=== PATIENT | male | born 1940 | race American Indian/Alaskan Native ===

== ENCOUNTER 2016-11-19 18:24 | Emergency (ER) | payer OTHER, MEDICARE ==
[2016-11-19] MEDS ORDERED: TYLENOL PO ONE (21:36)
--- NOTE | 2016-11-19 22:01 | Emergency Department Report ---
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 B2Re0e4AjxLbLxDcY63/MARJAN/ANagDRyfU/xkAb5Q0doBFKqnXx/U8en5/Fg23o8UmgC/ TQ8FPMfunpHxodTvh1/+C1oEVQqYWGRbsVUApA0Bj68/Ye/b2QnIIw/1r/7xqBi2+ Dff1n9mMk3m8V8yQc1NEz/Y8uR3B4N7e7UZmhe/WSgCs/32/bT4h3eblzew4ekK4my+ziR/9R+5zj0P/ wBbsdh/vt/vN/N7v4OsObYBorpJ/glxc9PkC+Pj9x+WvSzGrN2ztOnx/ Ueb8yAZDT7xwy1G7auX01N6tByCGIKIf8F/moahZ0l/L/b4bEK5h/uYoJicW/8AaX/ CqLpo8xkK1vBtxpx8bhGrS73Cjb/Zk+Srgg8ErI/59vjC2gasn82aI6/Za+ KsjRzt2Gr2QodN0x4ea5L6DqIMt9AtMW6PrrP889xa6Jyrx12/OHTC4OnwR1zZrPkWd79+xnJRAg5XL+ 9cDfjt9J/r34c64c8xL1N/aD/T7g4RdNwqxo1q1cw0N+YBky8oqU8HPVkorHFCIUSGr+ DXvzMhkw8ZkbMY9t1uWdz14K5PyH/wedvFNkLz0k+m78liYiKnxRs7IzXPvtyzH+dn/ dx1FEWPmC2U6ShqgQ5+Inwl+W1zY4BIo/eg1vfAn+TfKLp2R19v8VqqPjt7AsQfoLKUH9+oRlsOG2o9+ 4Y9gbdw365ziSojs8U/ta8TdTbpZA7LhuP3weaw1E2R1PZghwGFePsph+JOXpe6P6BqchW+m4uNP+ CIytBnd64n9Y/q24ocqeylk2l6QBqHnUcAx+5UaOWwUKtHvgIt1x5M2BQ4iRKL40A4TsU+ V8ewujgjy2ltL8fOrtZ8dWH/RX8E4zl6qaSC4P9VBCEO/ Nit80UVf1zpngKB9d1RwyP8tKK2Uw5MZNB1ojJ4L7x5s6v6SKpMab/y+ kYkxtvpTMpcRxoRgAcNByu2ubP+pRfWMa2qmLnlFlRa8BbiFDvwQGwv6/Drj/69Y+khNEZt60/M33+ 8so45719T9JxcDCcHpFvDY1+F9g8z/fZq7x3bHzC/ aG1E7gvN4Kzi5TqAAH74ukhPTHPWcuKOebm6yQ7PW+B9D/5Wtgv7ks/0vd0wh9/sfB56/Y6+X/H/ NI1v2ObH0pm070N1C+G6eSrZqjr37NMZSuF6Gfj5ASAQisqBpQw4cWY+HNK0+50jRLfT/wDTr+1/ 8cgmEfpiOI1J6E6XmB+prgE7N56wm8qogfefwh+UxQiEie8pxd08DG/gbxv0L68OSUkG8jdYbmam5t/ 2u3gg+56ss1Le48b75/W2DdrH5/mQH3ehD8s7Qm8cby6eeYseT0sYmR953F+G/IdfM5X47zdw0WaVYAZ +9Ao8B8kxqF3inOl3ptYC+vq6cy4Mv9s393/2aup3JWUc4fY0c8F/JAhbka4v881zAjKp5EcyVq73Q8V /8NzeMPC+usqbwcytDw8CtA7U6/GqW4z6b2/tW+u/3c3DtTR1goN5/ iAn6v3gg1V7M2qlHzwqLczgwPi4Sd5doL5v1e8E41tZ8cKKQ32O8GtCQ2KY/jODJ6DiXloWlj2ibQy/ lra63QoR6a+xm+ba3aohdK/FSV85/OooK9YmDco+QwjwL8F9oSKkp9YdpjQuH8QUcES6t/ IeC9D8ThANMm3EndU/BsDk0ds+UfnT3M1V2Uwuzo7t9g2WxceoB+ZQluUsjW4l+PW6dqcmSwzC/h9o7/ 5TtZo00RMsbUZfJ+25eo3F9v8V/hHtS0+4tP3/MEvRn6lt3jd3LmMEJp1TvMyuAn+ QIJpnNievR00omQuBDlCmnDM/f2f27T/9H1j/AK+aE0772AnIdF9oMmAuZg3j+52I7ufp/dhtvJj33NK +vbjULpVWaRPJTodlrY/6jHT/AI+kJ1zm2CBV269VdX6b/iSqL6e1wrlsGN0gyx8bTl13eaU1/wD5Zb+ P/zYF6y4W4tK49zlwKG5G9LELIy81Xzchk0KnmhcVg/uvrC9Y3v/ gfW9iYuiBOXPvX1kB0vsO42AUov06itJb/JoDy4ZeX2/QuTpwED8e/kmRE+5FfZ8+b/t16/ sneeJ979GGMrjJwCH/FSrgssNdjGOqa4x5buQn0qLLtbcrA+p8R/SuHYQi1T2iBi+/kzpLqxJ9ilL/ AAE+2V8z/FP4jx/Dz4W2/wAUvEHwK+QnvFe9c/xF9IST3KE4mB+COjSAxP7MWc4IrIt/+ Ay0F5fzm4ci9M+k2m0Dzop8KZ5ygoC7AmMnqwfgodFnId8C3yt4V6RQ/FGv2r1vQOPWviVa/ oaGWv2Tavwe/Zrfz7X/AImnh68+uLP/XMo38koU5IikM970X+NLi3+U512r8B+PPEl/8SdH/wCFe+P/ TMj97wjzcgdydQ9o01gZS/iD/eHs4S8P3UwxQ0k9t/4R7/TLO+Gh3/ 4GbX6s0AWbr0VqbxwjMr0GxvB6H6Erjl/fj04f0QSk/ jHLDG8FuHPVQTaoR2XxmMlL3P8Ie2vnxeB28iB5Q+1C0+x2d4B/x+X2LOz+ 6hQStVgNwqc7Pwo34pK0s6XYEHRPMoGcM+//ARDh92XlJ7bbblNEz/0FNLyP+o3kqH2T+WixU8E5z1y+ EfGfhHS/h/8AC/4T+Nfbmb8G5ju/488HW/klvw4SO6Wf4ix5/gw3S10sV77k1Pq/APP1j/OVJ2mr4DO+ d8atQsa28A221qjkUcMSmzIFiKOqdm1YwdAkI4navtcYLwfKzkZmxX7HWUdyi/ tve3l0UaUJ7a1jYGRmgfJOtUC2/wDb/If1/Ngms8pxtXvbcO0/l/ Q5MhF0vvvRcuSvxu3zjq3BaQr6Uk1DvIRdphaSz54Amrzh7/ 8Q6K0H3oEt3OKfo2U3SooV0Xe8ynmc8D2+3t/+FS+GnXj75i+Lut3V/OL2MdDgqJoe0La9P1Utsj/ lKvy8t7/9ekuD019/501SgK9l4L32t/5ae8brieS9tqWC/Enw8+X0nuCrbeA+k/BD40+ NnuXuYdPuLbWfA/hCe+9FriDxgylB98/CDU6SxsAv4g0yxk4kb+sWNtrlh/h6kEwDnle8H6O+J/ za9fdNrnwS7HWg6a8Enjhx9U02vBDaV93T70k/AM/U+ufZfpPdf8/dfJ/6Azafmbs7+ Nw94mrhydhY6H7m+UXEK6IYbxkHVwupN/lsPhy0D3ftr6J/PBR8SjOI0/ol5Z3g/wCP/n/ T6IM6GiOXEERzezoZntvoD+Dv+CklhZat+lK0w2Bpcl/vhaU7Rk9IhGabU5/yHuR1fryI+ 6p0XrTttTPuAkd/4+tL2nXwIo9HD3t59rdU20p6f0B+V6N2oGgJ6wtdN/7b+GrHwTGLJqttj1rCkqH/ AKuaL+wIIPsf/n9dNyB8q+i/+MiPhDK5HAwnt1sV6+F/Q7lD6eOWo1j8awM0pe2K+L7/ LIRAm1DrIHW2aHw1ng7gr8xSp+UiaFH3ah/C+0f2sz5kK6C08/39WmJ0yYg3S+f+Pi1+wz/Yro/897nj /Q1DKvQrlT+VhxwD6jb8t+E/ta85k64L+B/eG2RnHRP3hYppBRi3yWCNeBjYrTR+ 3D2qd5R6f9EihZq5K9cG/yGS9T0dH7YFgQrqX5FtEsuP6RFuR84y9u6Xa/d18yE2IYVtg5K/4/ LzmfEejNoHxs+O8lj85ip2u0D/KToaQnNhgEkkoh2mqz3ULn7Lc41b/mRtK/3n4yKed/SlqdGk1dX/ MyMzK/8AGPM3+fZ29n6JJxJ/UO64h1tvDro/cX78szBtkVbmFyIq0x/V0ayTt5LJWvH68C/6+3179+ eMgElKCyncrsrd/wD6/Ho3zvMDJRPLqIXPAtJ/AH/8Py+mKbRRQAoLKdyuyt3/APr85/l+ zKuGOyPzJwWb3E6B/wBfP/42okpCfJtTtpaVfsr71/4/fln23aonh1EFyNkP/v8A+ N4nCSJmeWEyvog3wwK1mrhcTc/Q8XUFzn8Pe/4F/zKi8EZ99ARSy441/d/88/ Y11z0gyztTg52nLBI63jy/ACzQedxjP/Lz+4/9qh03XvRvHymbAUt//PRPPl/1P+j/ SZOsb66zuXITYnM9Z55/OAnmo405aFt8O/cXDMqsqwy/u3eCON/9Obbb4D5a5G/viX9TaS4Vvq6EyR/ TEi0mtr+IPD82h/C34N/xYgDx8q7deabb1sh/Joseph+L/oq8w0Y1L/RB4KkV3e+29H0/ rWVrel1cdKmQ6jkab/6UD0f3W2vnjc/zPp2mUwcIfCuweDSr/OVEcI7g/Our+ SCg3Cn5DZ4PBvQUu89s2t0q4e6Ngt8Ch6I1dzgk/mUF7e8W/OMtq0KCf9fPMS/ mSKJpn9R0HRozeovhaEkV+UZgQ8wMQt6kPR672qnedoEaS7p6Wnk/wBM+z3+g+VBJ1iRELhkE/ CIWPvV1cfY8g405k2wi/oIr+no4w0lD+ kJ0TdJk7Rqs9mzWzMooH5hF6csD8s4aKfSdPKJ6oqAeyy1QgJUfvGht/bg1uPpLEr/AB51/ VeESDOHEKokQ8c9I4RblG1pOmqEu4o27v/Of8vQpe6j5iRt/tZPcpOGmG8O9j7W1bl+aY3sZxG/B/ kQ2Upcnz6+7e3XM96guZ3X3EkOge+WtHqsWvg3uUm5Phab8wUMlMS2hWA2IpKrH+ 2OT46m4GClyd2Zxk0MiOs4o6rauMYIn8I/24/evJfh9T4gv+HPwq+BXeOg1Bn3yfa+ HG111LrhcFhFl6x8O4/bCi7ony0dPaLowS2u4dc/BYblm2YoTsB4f6wGjwsvUC3Mi1jyfQJ/Dehz+ HPgUci2ojXq5i42Lfc3X/6R1DX0g/4/lyOympRZC0OfOOAtv2K1R/r+NekaOvlCFl/ds3yP/hMiz3MD/ qX9V6SoANcoauZvdX8Xdujf9fn+e3tngH/Eo2eFfdv1PjLuQlBi72JwLd/g9yG7566je9Mh09WoN1tk+ a2r33n0A/PHz7f/AJdz/nmqa+A9Jc+Y17rUa+6qFCH2yy5JY40JEkl89+lz3iH8UoJbud/PH/ 026V0vEGUt1bBQH6zgG5Q8GLr0cJnFK6ysA2mp5NikjIOCB6rTyMS0MkMn2X/ iut5K8A48m20478xjjTBto4YQ2/52qzb5Z/PXv1+mDXTyIsg+ZVZef/r47Y/s2hU6ILb2rpbrdUP4pn/ r+PVJ8p1QKZhYEoh/hj/XQ6y5tTjAz8KWc2L4p02vokb/AD/hTbuTEyr/AAx/e2K3rVrc28q317X+ 0WjZ543s/CzHP8Ul/dT7UcKIW41F1udsXRgxvQHBR88Vj/nFUwsgXIcNVTxo3eNWk/ 1LIkQ0M5p1fl9G3Ke/ZMdidUv21/nj+d4l24VcuqYfaf04Kg8Hw/LMqYB5TvrlZIsoUmdTd6Ju1b8/ 126bxu5C/ELKaUv7YHHoCiy4qQT2xtHujw1Ntz0+T3bl925064N3we6j3l/f8Vr10yi5Orz4fbawU+/ 15+p6/vAMmf0T3+L+/wDx+n/1+iDwwOLz2yypmmYEHgY8ex4wo15H8rZf2dHZmU/1NBli7Ci/ XPoaHz92DwrQ16T3VYLCkYuzA/f4tF6luSvIwr7lxrp+dlV0NneouK6iy/f7f/r9+c/jWJdyMIm+ NwFoIy3P6/5e/aRrOQkEugIOV0oIARIJdc/j/n/6/CcfGNKLuXOjjejb92/i5BZkc55+fPBnYYN9rg3L +fr29+G8iBx1ya1h6LgDrh0z7/ftx+aSZG8aaqKJ7Ph8LEmKxNemWLesu+x6XB/x/al/08aj+4/ 2OkcHryjM7Z1LsGzO2IdPaQwn65qyVF5BbMufGOTt3vcm74ewol0HfUOe/wAun2j/XCjq1JvS2x+tf+ XzyLkmyvP+LT41F4UQnqXltbfNdGUdugsX4BexK2rfNcpqg0/hoXkH0aHu6m/s+ab6agE6UzX/042dW/ gzoknxN/raul+Y9qHKTRxxzp0D8n/tDa0/lk2Q1m/sj8F/bpInAF7c4sdT5pF+ C4bUFdJ6L9qvGhTQ9JVA1t8LDZVLRNQGUSQLKD2gwy9dX4X9mlrDiiK+GtHC/21c/ Luk8hUu53eoD0n0I5Dd+T5Q3Wj6G/LZYVEpfrFqHtVyY98bSKX6Tpv2V/hb4+ 1MqH79f3c3W2O3WhM41gd3CAUQjL5Mz4/sNsf+u/ NjqyaDxk04ktHNlQFJYbv958mjQ3ydv55qekcuOgDNF+D52M0SBcoJOiZMMAsncH+DYmacip6QS+ QlxGeXFbju0yXfXYiE2J1OJZC6fqfU7l6Ht82SnM0Z1FaEjDko3Q655e/tlnrtsKAOy+D7fKC9k/ PCD3lvj/5K5QeBPB/gO5R0/1e3l4LNmM9q1XWin4IMbi+OOMZ/4G6O7EVYkgPtisZmCls/GiY3fabNU/ SHuJ7zeYnXJUz/qj1Y036xJ53jhJ6g+YSzu1BFq9y7Zzad4OiOzJYrLc/y1Y8HseIxp67x+1/Y/ pb1SL6pFDelxqMWt320oLXlkAb4prwvh/AJ+Pfj+wKT9WadOfcl+bP/TTf+H+J/yLx93t8TWq35XDp2/ 5Z6dP/rVgJJvikjZtzN/tzeYe3/gP/wDdOetacTMWdWZd2/7m/wAz/nv9c9P/AK//CT69ULgZvqEettj /k+/C6mClpj5HbnDq+/8Af9z/ADz/QOT8MX1/+x/49/6WL6TNEVo+f/sf+Pf/AGNOWbJVWUqr/ rZ48Zy3PnVyqhq6H9d/99D/ABo3p/eX/myn59CZslp9A8s/99D/ABpPMT+8XSGskAjZ0ix6/kWA11sxO +8/L91eP8+9Hgk8ARc101m89a/59AcsMf8rnAPNAN4d+fH1Hp/2+LFNHJxhMgzl7u05wL13Bg/ pI6u0fZ6cxF2dvnc09c/iwFk2S9fx9bd3egTmp0g5rw6i75teKh0B5+Pp/h9smmlPbzsXG/ 3rOvx6IYOE+TgJf3ucifw1HmSnLI2XiJLqUbKVg73cZvCUuv5MGeQ+y3Q4WkJ6y/4/qJm8EE4Fm2lp+ Gf2d/Cvh+AILo6htNbk7ZqF7Ji/ABH/AKdfXn+j23/Hx/hEN7y0G8gqUEEb4fqdVs2m/ bJU6XUCb7st1tmHblbsn+y0k0BDkZ5LoED9Jd8j7jy/AGrxBrcGqfZP+f3Q/t3/CO365A50gk/ b9zeJ8F0l1CF0BvMUIZmYlP7P2B6mdDfVnofGpE1SPQgw2CfuQm49Ltd04KwG6BVI+K/xv+A/ gmwtrnyZN/9Gneal2A94gGYf1GpbT8PdrM3VTkp+ruGA4D0uk7GRw532/MKT6EnbgA+3F+qH5Hc5E6jB /gx4M+Hq4PIje8vQ7Wh8Cd2Tfb+HUM3/TS2N2Toq8v8ze7w1g/ 3iQvzGndpYb2o3LChcttD0jf0Pqs27yxlGT3QWz2CGY1e5NKfHRqHflwKLZROmfZ3LzZ44b9wDRnU9Y7 Nva /JDT3U07nh3WRF/MGUa5zeH4Lx684vGE0NxMHsGO7e+7JhNUU6Poy1t7cbYyYF/szVAc7ZpgVe2O1+ 7xw7Vz8/pz+qC9RNcF4u9cv7C/GI9PB8rPwlWgaJUTO+HvEmnSSpd+UuE6iRWXC8VqR/ JcHBeXVlqwm900gp38a+yg/6YdL+uKPRgbZ8BFvVD9XzQwb9k7z7+z8O+ RcI8EuL5q7egQYtorRAboQ5J9aN6e+I3hW+gn/0m3/sHxxoU+z4IBKtRpK9pw8G7ledNqU1RKgiXfp/ Bf8fQ8xzrml/q458u92A3+0bojihHGSNF4f0e+l5WuQY2Z3QSDvH478klvnTtqQeZd+G4/ kLQ0sO4Myj4d2/4+eei7Iqj6DP+/TvnIH7jvhYZdAp4cJm/FddDEVx3vArB7dHrf/ 1Ey3s8C6QbDdnIqRh/6Z/b9S9SgcsvOLgbtlo/AJ/R62jhkglOAsP/X2/zz0/mQDqjcIPu+P3tznclAz +vN9dduURULsec/fkf/[employer] Team Lead+omGRyWD6NgahpiVf/A//ANR/TH8q81+Ea91U8S3NDLefEFBj7y2W9thdc+ zyTTQQ/wCgwwT/APLvcXQ4+1u6mmSs64pwrQSxyiB2NihE/kwqi8YJcg1Fe7GR/Lv6/ k9H6icwuKP5qgJgLJggwpiq/ tKMuj5K879ygV8d2nhl8L8AZJzuAanYwgyqUoF0iwhRutoh2zvn9oY3i9/Z+j5cie0emMmJ+ Ens5i1Bm8shWi+i/J2V1PAoTfglo677R8jeSzW/AI93B/5bQd/tH/TrddfpigDs/ edxzoE74zUG29onpyR91zRvq/8AqPIn/gHKk4wElAEoPi+E9OtP7oMUtX2ZaPjohcneRAvfASt+YxPB/ wAxC37/QKqwCu1L/MGn6nY61ROTNNJ42sgFU/cwGp6Jl9ky5L+Py6Irmb5TqT5T7qgrkaq+ sSY848aMwaefECm6To1hXneV6IH+5JFs6M2a7Gr/7XiJa6CBgGQeh480cdmQoCnA0N8yuRZ+8jmtZ+ ANNL0cpt7kpoaDY2Yu0m7+3/6/dqH88023NYn095UjV3yl4uwBQ0yaK6e3cz0UaIa5aOgDs/ sR8X1d1akM0n8cp5zv/CvUHmUfebaw+vOf1/n3/BUauaoaeG95gu/KudvLxcbmbKrx1/ h49VEe8b7g8KVJWnOovu70/ElX7U7F/wAW1V6/r/k/hQByeoytJdyLubdH2/9VlbT3g+ njdyXUMaRad2l2/wWu3hbZnnzNOtgXv40bQ/6z/JP5Z/XsD3f1tTzjlNZTmP3st++QeXHc/vvIghg/4+ 7b/X/6Ji1/4nF5/qKDznCRlTpCCC8bHjhAPY05CbxHagb+yn/qyuG0A3pcjdvuprhw0novPTb2nt/ 7978qAB2Qz29n5X6+yY2WadL8Dir7d8nv737AbgqgfLHzQhCcI3ZSGZAWJF1A/J2e6Xn0vesqME2z9+L /AI3+ZgdxOGnPzGxdR5Cyj1lM35+Y/iX4uh+GPw51/wAWrbx+ItS8P+ HnAUxOWsVt9ett8pqxMafK0S6W0WJz0WjLO6DbQID2bM5Q4pe0G+2a5bWN/wD6D/oOP5dgaisOD9/Z4+ RTcG0Km4it35tweQ+hi3523I38vi2k5s+ U3upYz6hv4TFVlnLM6kf8f5Gdjh6bQIhfOrDZi9yo2gJiuqSNU3zWZHUPOEKRCWPTISKPJG1cr/FX40+ T4h2Azdy/JNA6HMmjEf/+6Z0QvQMft89EBaxFRL1peSQgTqeQ2XKpYv7gf7MfpH1ZH/VLz7L/ ALUcS3NvP/dqt3zg5tnJFbfucNodFGhHqv1WgH1R/wDrnivz/uI90tfz7h3uaXwW/yW2G6Wf1p22/ f8PgZvVpm18PU7fEBd/CFYqqV6LMwT+R4gUcVhcGhB1pgUcg8RoK1do4r3ihR9U160B56w+ 1UAHyfrWmrqfhnUPDMzOlrqUN/KYnpKgFO66ARzXy7u4/xSiOomFzbrTIPnbt0s8hsWaT6G/5n+sS/ sZvIvoc5/0cfaIJ/8A2w/9O2Xa8H8B+N/LpgB8Q3P9f4B9zJm1q+GSCcKu4HkhUy0qBdT2QZO+ grKXrVmdG6d/ESkt8P0jyLCOJXWEZK6W/uQyp4CatWw7fEtsM8eGLv1eo+uaTrFta+ ZAT8GKMjk6HW2x64Rg+gvprG+0/wD4+SRWjBd0D2gkv/pmzS7Alt//GT95QzLQI6VTwxy/N8z+3Xn14/ Or4JCLaUYXUEO1O5+/LtyIKik0lNbGsICD8h9Cv8z5+8qjzPm/uf6xz0/z+BtqE2TYNQ4gya9CxU/ Wf54/7/tqd9AsWQsGtgvdH3mP2/56dR/n/CqKu5kdJ+ZW+SHP/PTqP8/ 2XIOBBVNWJEMQNSXUVZOXTWy1LUc11pRpDrqqYQ+H2HKv1fsIU1JG3THO/Tv9o/z/ HWNFHnNGJVz0gI0c/wCWf8M/V6X5HXUFh701sgufAuw/AJYj/FxgAHbOHARm14bkqA/gOaq1cu1/ Uw2Ur0ceveQ1D10sGXj140mtMYyPM9kY3E4b/eZz11PL9fSEgq5a9gV7Wp34W8HqCQvNZ9Kv98a5G7v/ WFZW5wXTjf0DTH//MKjsRlrAt9uT/L0OcFycI63BwPQ/7jA/4+f9f+E/evB/N85i7FpOcySFJdVb+Ei+ IGvX+saVpdzqUFvcax+5vr7/AEGC4+rukpZ7Ny/VxN410XxA5z2A/j// TQWsHljEwzm2b9UCNGArm8G0Ta1r7FKgq6w4t1ttKjwfSXsr8dRW+uTQW/9Owggy4Bpqh24Zqh3ECzt/ 9u+I3jO6+uFxoUsz1Av3L263mz6UxPN/ZGL71IPpm5Pc3fQ2ipl9lg2DlYyG/nJ2AlQcqfmGk3+z1o/ 6rjzYmQoUXMerod7EcM70dcKJNeKtidIrbXTd1Anjy6fu5T+F/ dSlp7PvNsiV0AxeS6EJKHOtsMy9b00ejdlWHsIvUilfV/eUiu0p1a4CQO5ojHbXPncw7qi/ SMWre0L69s0tkHXb2jgEoI5RgGfgqqMtsTF9tF5r2/WR13pR7amUs7rp3+ZQiW4OgB/1KdTqyQ2St/ 4gPYyfFfRPB/bToH5u5CdQ7D3qCrDxeDoNu6PRfWyv1t3Ol52IjN2wN8+ 5uWyA4LVF2r97M3Mt6WX6dknSUlOhmWr75/UaH8BqSK8Ytvtuw/P5PEtH0ZYbDp/p25PjwVo+ Y6ErGzWKu+JtUf4x/UqwoJnumW2Y5GnssVYyE+Ivhfx/ 3Y51hCsb9Mcc7U4fO1NVla4R22f7Lo5MN4jRchEn3gu3Lv9Da+ea9t/2PM0MDZ704cu0sHVZLG4D/ tNeLar2Q223Xqq4/kVkRzlohDrR8FC8b/6cv8HjlUDTFa91IbqqIj1vIiJ7WT1hTd0O+RKJov9hO0xK+ /6d/sOs1vEW2JFhtOa9PkpOw/G/SsM30BO87UfzoP8Q8XSO1nss+P8Ahjk+3V1ffMRn3BFgxJw/8H/1s /yY2sZQkXvW0nW43v5mkIma8mE9+9AHYFGMPltuZuv/ WA6vxvk21v7BTtyIusfIrjSuxxcx9bW3Vhbbrv5rzpOvLY1Ol/zRk7jcKVypy1lmYvPhRtSsE+ t1p7nLEalT/ghhsAFZhEpgxlO5itJozWc9Ze/s31b7o3+CznguP+PjT9Lt/wDjytc/ R8HxFvQ8hn7Iprujj0n3U6h9MndsT8WNy795erIxuW2B+qG8n+8AwUaC2+uaPlVggn6Q5sxEt/x+f+ th6HuzfR6Q3WIys/B/y1/s4throp+p+ FtP7iIEpb7DJ7WmOOj8iMa24Ge61DzW9cx8c0ikHTctp2b7q14wua1xGnRO64fK6mo7yE/8e2o2/ n7GzzZ8zlOO7L52lA1RgqkqV9rQAVl53t0/4K4DomJ8/fzWMFv/Nikolas/2rP+m8Z+mjIsl7Q9/ HX26NtzjEv027Qn/aPT/W9HTbXqHsCRkJRSuenr+h6qXU6kpSTaDo1jpiTaMMRa9iM160/55+T53n+v/ Px/pR4/LrXVeWyHzJNjKvT/AOv/AJ/PisUXCiVmVmVo/kT/ZD6z1y2G6/2F45jJzCEpxzow7R4/57/ hQBy+rXCwwTTMyrs9/ue2fp3/VXIqs5co1dGf7lEkH33Uv47rVtdgcZbnzAWjiCc7VTP+75/x/ jzWchVLbV78c4/v4Q8xcfQrvgg4oQ6T1lYFT9I7jD9eVd7tA8LtYR9b/wBoi++ZAjKglS7f6G/Cz4Ow/ ELxLoOnX+peH5NT+H6lK8Hc29P+Duf36c6ZBbF+o+A/E3nu3zn2Px7h5XdS7q3HfMjTgoMjlc5v7n/ mZIgiQD70pk7E5/rxmvYP+Gv9uvg9u+1r7SXUbFdJ+ Q7h8Y3Cgfr6Wy1qYwlf2IqI4z2aSRf1VP4DYGbh1i+Cbfi5uYQ4E6XKnvrvu2ITB8W/8E+NK+HfxF8H+ X0B9skBrqw2bgO6Z2Qo5w4NAGPg4b/4K0rS/DfiiaKfStM+JPji+4P3Zq9VuM+RDasABuE5LJ/ VbkkG2NLugDqw6YKAcgc4J5upO1naqnmm/ YJx6xltr4gVWz17ivZFMNQNIAKDLETETLRGQYMnyiRfkMOJwulTpudCQ956jhlguMA+UrlT6/ 1CGzdR3m/4VvxKmjm9m9CfSzSnb7SKOunk7p91x265BuxO4O6WMgp/DHx1rN+TRvD7EhtVr+NfBNvr+ rm/1XxtaeA/BcgwQxAO3wqbvuJHqSwr1fbioNqan+Ycgv6fA4jZ0tuV/JSf8L8D2QKqzkU45+D/ HKH3H4yDHAY0Z+EQNqaGnB7OQO8A3Eo1zPvnr7Ri+N/HCaQp2qPjvq/qCzLQ6pkxrz9m32e4+ gI3DlHLMA6LyP2Dt11J2G082/Ln/goDodroHxM/ZP8Ai/KB8BEy5v+VF1MdzOKdhnUQvN/ aN4MGxxg8U7bz9zAyF5JqM+d3dIecjNVB+RE8cUVE8BqgqAVhxDSzZFayjl8r4n1w/rBri2Xbwjq1q+ hH/MwY6pSNw2hS4U97lL5T7/ubgev+ uiknFm4voR97g2ntBgnTprx81kmlOZJKye8Co3g91TtEUV7G2bZHMU8+5f3vOOOEdP/+Pq1/0zR/ ML5VwL2K2mQPKGxxg9CcAAg1GjOIuW5vQ/Y7yb+z9Q80/wDLH+ytY+i1Hf1KGnv1R2z+y2mbM/ 8Hu0UK4bEkrpcJ3yH6/wCenUf5/bPxwXztuSpDIdBNHCkhpW8Ohj01e8/1H+k/5/ELUlmKdnjPAn9Hg+ Q333rYdNFEoqIJziJJjY5l7/Xn/JqagAoooyo+8wX6/sWyhhQGTJJPH2ZovAyr/N0/Dj14/wA88N+ 1J2Sfrm+X0/zx/s7INITNXuUkreZ7iYUMk+bWjwJNfv5EQNo8yLik+HT9c23/AG+ A9nMnXjg3ne7Gco9VpiZstgXRhiBscilOVV153e3pHddaJmThu42n+/8A9ebn/R/7O2u0Tt/ cnQAMPvEz28i/6v8Ap/YsSWdE25n6chKI7PCtj51Kyvq9tsqU6R3tJ3qaCVH21I0u/m7alC9VSds+ nMf6d/y6Gqr+ZhLtQrCi9Rwv2OOs9+T5nTr3eYy4nW7WJ+uvoNH/ALW/s+3/ CQdT5Pzi8M12wE8f1uxbvTsoeig21/d71xuMxQqsR9f/Ojt/CNhB+/6QBz4c7wk0S3qlsUiAM6/ v14U1rylOWg+Tb7Bmj6/od4pegQQ/ZNL2s7ojC0wc6o8H/Po0Vsv1s8TTyEbdc6n/EYC3I9ZM3RXJ/ wAQfh/0y7f0qfcKcSAwN/jj4V+Ud3E3V9+r9uh2Z2Ahdh8tb8KzK9i2+8z7fo4PVjb0I/G+ vwPBsof2FtrS7HfG5OecvvlR+K+u6TaP4vZfmb1U/ iyG9Y9Foj5i7ZxIqS633vcIi0vkhR3JBo23dLzkL+l6c8zscEmes/ikE5XwSK/0R3e04C9fKH/ kgRbgnDN1reSm9RBtQ61Z076nbuWoD98XsPu3ZJzGiGKk+UAXSyxsrLcF2m27ggwzO9jAs+ 78z2tsD0I2pz0fJZXq/hOD8MiSTOOUXWSIJQBICO5l/t8+FtW8V/sc/tCW/h+6Z36s6UkFlT/ pJ0OaNvlidlhBkvxg3R3apGKxvKr4iBk4+5539Dtpl4Ng0yB0W77OuNhz1y2yL1K0DeYb/ iZKQobHY1CyPXq6lanX8UoM5bxnNeujdEHZg/6XPzyJ33Mw/ LBOwU71QlzpLn7DJvs6T5xxol9ppqoixjt0pRF6vSRTuXz1vBStjk0xwjgf4lD/L+TFxIvzx7JrI4F+E /iyOQ+IBgE4p2X/FiDMd3N9VDtuTpneR6JyB5oidI+j29v4o+G48G+AndLhsMowjMpz3Kb3zi/+ EAvY8AggaVxK/Qio07i40RspBtm1Wubnfax0uJu1FUb95s03z5cJimK0kAby4/8Ar8/ j7jYaX3Kre7Co9/8AII/p0/CgDoL/AF+JEZjvqg4tidipaVf/1flfn0/s39U9RQeomepTmeASjnnZR/ Uww+mqtmpg23ovHBae6UqHYmb3zjxYbW+8Nm4+MA2c8Hq7FiLv04l/APUXA+zY+z+/ r5W5f8d3WabfXu4t0XHK11nQ/rwQI4Q7fntu/eSyE0U5CkvUfz/y3/0/7Z/ yx0FH8yO5nCRtmmCwsNjlg/aDz6F2hBcGM9Xl/wCk8Y/MV0+l+DWucBlvPUP0EI0++SQtV7aAkzjg/ wAf/r15BN+eje9sXPgg2I/vTqg5xvarAvck+SJ/33n/PSLYjQXG9p6/1H/P18rCC5/z91yr/s8/EiHd/ Zvx20/VzUTvm344JifZoo/dmiMR8JfBu/LEn8O8wEVif7+JAUN1gkPZ4xnr3/ 1C1nHhH9fc7qH0kjo2IfJ33phNRWq8fGeSl+D6VvxHldrE7+c+vizQ2U9R1Ajqy718yHX+m2// BWOultzKNh8N4s5K2f6ro951B/Lt3rcg+ISmocJRU17RSJ6zgzssZl/m+NfM6YlghYb/CX2b/p1P+if+ T3+pNHvPunJJujt5aagFrA+royc8uZl/6746QXj9D15XsotoHDIvfoXwh3h3a/n3+teKT/DLDzLY+ PvHEMx+svQuTc3cY9OV/Lf7R4b+03H/RP5KgZQuq+ LiEO21L2yN3tDcsmFnYcfmBFlzE2bGh0jnwL9OfBL0+Lb/AOtQAa+c6FoqDpwqM/qe+/t/+bSa8xu9+ 6fw/sZ0fLgJ5Gfpnbst8C/LPvx+YQ46x0Bsk0Ga/P8A+i6aMLd4EHbWRdD19dXqRi7/ Z1M99FWwkG2kYqkPP9gH58/02Dce5AETfnY/AAT+8Q2svX7ij8WI0fDok+IfHnhm/iVeV8qktYI5nJ8j +OXiPV/eWyuzxw5dgwQLFJL1fsovvaosH9oQC6Mr/mf+4SXzJ09LUB3C+C9ppewj8sR/AMN/ArwZZ3/ Xb6gg698pC+BHmq8Ilh/6Tp/xhi3LPKBQjOh+h/9MRV7Kja9DybmH/dViDa0s3JdZqcBn7KsuiaLZo+ e8WGvLk8Db8A8qGBUIvI5GS9JDjspcYEmHL8wXISnmazzYWDGYEWoayyGpxtpSUJQRZDcrq0hCjBo/ EP8AZK+NNloVrcXPi/jh8hiio51UnjGe/tG6+XUpO4zi+ QOjqIvFb6YQ6p0csD6ClVMm2TU4t9Q5DWQuc/CeEvFWptTlyqvoNy2ST2Y2f/Ucc56/ wQL7GrLhnCPpYkd5h2KpW1pV71R+MwG3fjZbMllWjNa4ir71RcvmG6gX/bM63m01ywE5i/Q/ MiLi087a2DjMJVjtPNrjpZylrCqBiNw+Rf8A/FcmRC84mwx7U7WU3Bk38vjAw0dtkZ9/Z5+MPij4b+ Yeq6jvpVCnokxrzM/QK6O6zI/6j0gfl8CrFqGjauV2xD50mlnAQqaK2diXP9wzo+NofxP+ S0P9K5jO6Vy3th3AmAE6bu+H/EFfq6sDhlt1qbE/MHdZDmTU8d/sX4Wyu8ja5q//PU9lIztW+f7P+ q5Dni2P0AeSo6P+M/uX9vJ61pp+J9H8H+MNPm8+bz+ih7u2Oe0/AKL+/tf9F1b/AI85/wDj9/48/ ta4PSJkWJ8MDKc6Zd8Av6l5N8WBN9Kq0zvJ5zyZpcn36oMYwx/An4/ 3c7efz1YqeP0hnGd0iyetW2kO3h1Y6sX/5b32j+JnGWw5hKm2/P8AZNn/AKZP/wAuf/HnVG6+ JK6CluIB3hsyjg8WWatgCF6kmBiVw+idf+Yh4A1b/SP9R/ov2T3+3q8NRnO33N6lZocJJ5Mlf/P/ FRm76sR7le5XSFwHy/cfy/8WTNyK63Zoav/jp8wcNubyNUmqvUqJ2aJpLZPaxtET8/6VyWFxBheFsm2H +oH/ACCf+kycciluJA8E81yG7/ap9J4UCPMy/wBt/OWh7qGW3EmGB+x/DXiG5+zY8/3X54wSwtM+l/ sJR2RFfXJ90sysudn/AD/gHT4y1eYwrJJ/1/pj/GFZfE3McdcT+8YcII99K7VoNGrO6qnltxWqXcW2d8 +nn2F2P4f32O/SP9FH/Hn9ss/+X2z+uM1fWz9LfxWh3hsaF9ciLz4nPXdxW+ YJpsOofsUf9fvq2Hqq4q4CZ57j0qWH/wBK/sn/AE3z7n/JcZwljVtVSA5SghiPe+P+f4od7P7TxbGwzl /iq6jOFt4/pmtHNCv8492+NMyDM7t937ejS1Xx4gW2f1zFT6M89sq/o/7ct3elp5+2f6T/AM/ t3xmH092U/B/y4IUm2EqNO4l5VMbJaimc6XcSvEPP94a1/wAUXOr/AGf/AF0/ Cocn1qFf0vyKeA7j35T8/aEi5W36bO9siyJseAYe/gePTnHX/vAHj8I9t8iowXzoXiO1W11+3Hz/ IGgrdmw9f/vxb5A7+sAoz7563Wjr12m/6LkkyZgDT3Z2/wDjPwR+f9MHSrejdSRvwEc10aj5L+ONYgh/ 49v+JD8Np/GOvfarr/dpxd6MgsgC+PO8+mBdaFEHrHkIYv5xK/yz/wA//WrH/ L83EwCa7z8yUm14Ho4zF0AOxy3T7kp5Tfoftxpmt8eBo/Br5UnpjA4x9aqcn/8u18vsJv9u5ny/ BE2zdcjjBP6sjU0eAcPekHZuXxrKK1U75gqaF64u6+ 5meaUi3ykeRdVwG6OcLGtsh4zoAo30ckR0onjjNErimgx0jp9ZsvNvo+ LOuIIZETMUphlnEabxpUlGKWGJRYV9m3nn0hrK5/wX/io4Q8tTg2agi5/fjVznTOIXRomyI7U/ aG6DoCaQNb13yht0kykF5+RJmu7F90Nm8zUZsdQ8m+Gnw/F/ffb/ABFZ4/ZOvzu/1Tg1Xg1f+ aN9RwrNsZ8FrA/qG6FbX1ZM2Z2qmeW5+ 21RgUc7QcGE02aT03wdhNIvpyA1OFhbdvKnDkpRdibXRR17f774W/EbuyXp3V/X9W8tZhVsB+ 6tv357P4W/ACfbp+xwn3DPM4q0pesr5n2Em39WdtqMhZIxmyzzDDO6kj1JIXYCeuLInWkiEb/x7+H/ FEMg04yd7p0i/xFQA7ffOt/1vxedxZc5dAjoMdyBujs2F/F04u0C9xWFHBqCY3valUUCY/WI/ rWn4j6Oar5Dnm+tcXr2n+bHKtxazSQn/U+Sn72HP/PDtb8e/wClblhdYi+8wZP+/g/ B12Tx5SV2UlurinFBQX2r0/9L9fHQcLOC8DiHGwL+IPFViq/89rOHWLMdf+W+oabd5/gL72VdV/ lH1UknF6luuXWkogb3PvY0GGGy/jTBDzE8MS2o70kH+6PfNcDOxG3y4Nw40uGE8aQ51C5jI7LyOeykfx /xMTRLDC3FVS7vJpJ+Xc4JgXebsyV5hre91kpoGT866g3/eQyjP/Px4ku+v/Skyo2ZOy/x+ OtS29c8pm7QdI6He8s0wkWhV3zpiwbkghc1D/TbT/r29fsf/N6z13iblpvOUno8C2Y7F5r/l/ i80H3N9l6vaPoiN4/TKLD9j/n3oA+znG2fVUuTC8IeAY0/JNB+5ikhjla0gK146Z4MVKPp/dY/ 9J3lhrs540igN3xCV1GfXqlYvRlhy/X+h/Wdp5s0ccMr3RcRCYXtZ9l6m/39/d6IlTes+ NQoeqmNeM81H+WeR/x4Yej92RDdcw5/AD/syCBqH0bXc1sV13eW/K3pdc5g/GZ20DaSusp+ Syhj0k1udHBks1ApEXa7Q/9kYoZP9Fn302urjS7t/wBH8L+A/F2tygQfMvMv/dvX9qbiR3XhCcz2RNC/ PXzPqodgSx3zc13Bb2Ui1Fu3NIar3XlcDk9h2j/aa+IHg++3w1l1M4woZ1Nh/sPCyon2oGusI87A0d8V /NshSz5xp4pA9DUEWOPRwmg+f9a/Oc9F9JNsHhE0Gxpm+H7Xw/fTavba/wDF/uGvF7R8yfv4/ nac9l6kC/d77V0tT8V1qjLVqOj1+/1GA4THxb8V7Wc76vOM/uWrC75n6s1/ KrpAobmoIWVPSVDklcoEfleqMDXMNCTbUFkSpDeKURcRJFE7i/u89sjI/K1JYC46I9PFs8jh8/8A1/ pQB+VM7K3lf68ItdpeLcrmX8A/YWBD3Acjm4EbHz26c88hP5+JXwK1K+8V+BUfKC99Kc0i+G/ rpszJk0Cnk9Sb+qaBgzdJHlM1Vf4B/Zbdtq/IQ8Ad0jd0/pWLzDrBvykXpw47G/2k/s0Pk+d5gsJ/ gd8hgZFhibwD/Ad4BZFXOCA4t0yUh1WzwfhxMfe+B/vp digital marketing/r/x9W/eDRDkuwdoOsv4qm1Ja0/y/ Udu5nGsHQYCEvkj1gb0/wD1/nMBOMqUFiNnsVbbt4Z5t72ACCOLuOq/Td5qVw3LvWGQarVOcqKxm/Bs+ uK70ps8+GYDrIccpj7j4Mzow2f/ncqNhlgq/Katlin/l/8AW+q1749KZWfJv7b/JqPIk/vJ+TVfZMDdvDe/ 5AxkOWiyuXHXIuDL5TgmW/ashHBf2m4aJm/z1x5D15obRptZ2P3gSXqoZwy62j32/wA/24EOOzmQev5/ Ovyceg+nHt+ZnvetF6Yb8/MM4/r6/dFwylBtorLwXfHaIFpb7LYf8k9n47xK68LEgToyssHeb9l0x/ 9wmsG3z2NzbXa+EKYPPH3wH7jbkX9TI5/z+nUcje2Vyy2ff4puwz2CzR1rkXpiajFj68ZkQ+ vcQlzzhd4kezS8OhZ3VmcugDBV207ikft1F7a0mQR7Pzmi3EJcQPfFkt4b3CysWnw5y2516oFFkbY+++ e6+xz+RDi2/xHqqnAfdnlm9v32371/Y9/Jvu6d90NAlxj4TQbSvvkEigpyYJMnwHSafC5+ rzXtuwzwQeTgUAfVlFFFABRRRQAUUUUAFFFFABXwH/yErcdrn8u26axNrSzJHWvgK5n+ IpdvklwjX5Hsu2i+PdJ0taMe5kwDzuk64zFsdw/4/HnJ8HJZSU23z0wt+NhilW11XyDs1sh0GgqrmetL +YWLh1LebrROln2xWhjN9fg6Q+P6YhJ7sMEjmn1WOvSpo9R4/wjJC6iaIu7eWUHkC8QzB/iA6xb/Latesha+ Qof6HmlLOA04NUoX/aC4Shr5f0q+CM/boLOCe4/0b/uJFHs25VYyv1bnp7Iqbs9nB/ 0CK8m8O5SnXcTxZaMAu+GcDmnUWa6mXKt3rmHfXq/Z7iGXJ+3abfWVx/bSfC9s5/01az5HrxP/ ZHy15Lq42azz+EZRL01W+T/lnx/qP/JefH/668l+KteIP48F++DzbwsKOaG743XrEDiOJmUFb8/w7+Mc /PN5/lxWJOg6j8Fy/jC6uJ5/sfxG8L/Y/GIvJ/pjvrK5ywP1zk3URxfptlEhr/ ppg910dxlbZgN8V1iAGWdYf8S13hvBF0M+PuSK+DAZSmRvovhd2l8cZwse9H0nvS2Jb4j1W+IXh/ tjT7X/SOYzloS6w/iVbTPqoSBcq9y7a/iT9r/Rft3/OXMW4e9icY9diIApbHC/ 2R0hF3k4bn0XI0kvhbaeAhZ4jy7+0X2u6l2+zjt6vmmotya15v0T0d3TGScB4Nznh7w9tvnutUQ/ LFl81o0/PdbNxfUp7xGa1sV+W3P+LalSX2ASoCUOvcR/h/D3ghCxaJdjxxftO/d7ql3eM/ eK4DD67j15OoW/ROLnli911vcMgJZ4JE3eec/5yi7BBSm6wF4vn0eXn8R1rsi/q3/l7+5/ VbIwYzqL3aQfOX1yu/dlJ20Z5ex2rrMRb3aHnYag/ qZr6X136WDX08NyL3IdC7Z0aqjsinZfVpVjLz3RbTi8O/bGsPDP+/GparB/sop7W6Y3aw/zM/qv10pl5 /p0i1TvOSgN4i3Y7K4s8g+5Cr2zuxjou1PR/nix7j16Y06pwqmkqauu+JnqGoXVv/zC7X+dec+ LjVFhle6wJ4stCMCp8sogJls0bYaNREOusxZD+HXw+eheN94ho+0f8e/jDx5/PAg0c9Y9gv4r+ p8ME37aOI3/mz2zsasb3XsEn+1jUNJ+WFdMbnhy8Ejm6utaANwBvg1N1E+G+qH9/sE5jxfNdtn3Rm66/ d6T7ZxGCUfY4A+x/wCg+EsMzqe3x9piDAe7hCGorckK7eoV/rZox8DT67/4fgAAfSn/ PZJim9zn9M9Z9MoIGL/w0+Jnxw+Y8XLX3ad9H8OmWo/9upFd66thSN6Vy/V/Ad3Qf6OdSBVN2dkpoA5/ V+S//EUyR5aeu2Ut3eNiCsO6mnVTWGc2J/eU1AzjXO0p/fQhYvw3TuaoUeXHd0R9FqChJ4nUSW8/ JOq5rrQf13u8a6l1oOBQmtxhUadcfGJYLREXhpleFsykyDUkzaIxlt4uKUQKUa2A2mLzfL7uyOTWHHg1 jJxteNv /XYNYMsSAISS5s/lm6jHwt6RK9MCt6bD2nptDscO2+/QrE6ZjCM9D0sEp8+Pck9quxTb4twwy/ yTBA8A1l5/6P6Eequ7zCcvJu5Yyt/5/w+tkliy8aqi/FQ1vT28d2xdFu0Hed+G/wm+E6ejL5jl/ AMJVqn/CVfGjxjaWF/9WaAIM5q+N/btl4jjeoC8AlTf0x3W1f1tuSq0a1NJiKfmWQvmttt2Y+ i85qBPt9/quPLBq7MrkL3BfvzYjkIpo4bbjnAVX2e5xz+x4lqPvDXJb+1j5+vUf/q/Q06j9xgJQHjx12 /1246hwRPE4P+ZpKsYX+4v5H/Sm2JSurnlid4UOk4WDd/n29a5G+ qlkksmlXM34Dmh916fiZJaDJHKyhP227g/r+wLkUN7nYa6cx2yq/ Rxfgwy3z1YwZ4jQJQbqs7yUmCZMrs6dSjJOcH7IP+ddvx34z5L/NHQq92jf7t8CWO157c0lArc+KPxu+ BG84j3m0y10Y/TueEN1SlNIyaP6eKce+6H0NxbqHdjUc5Ja1oRkoiUHWpiTBiH1S7a1g/dyP5/7if3t/ wD6/BzWl+qU0t30XHga+7d7SdTSLppI7f+H/fM7KhuNYHNgAlhc49sxBtV8Se9p4AAvaDYz3vvM+ Ckav4z4DgFb/B4Z6RAT67jhnT/IndotgOwgndCZYBQOWyeaoIv0NSLReS1Su2fI7vkyfv1QgMrcBfP7H /a3zVbIIxf8M8E5HhCO1e2vR+uuHyC2iuglu+P9pvQVs4rtj9pEro9FwTgA8v9L/L10tk7Kg5+ JX3TFbmvg+LuJ5RiI5Z/FcV+Ohg1STDHH8gQ4ubKvZTc1x8bvpB2j5xTg5+j2xsJ/ 2n2LgseHqt7wKEc9dx9bhGqs65epV8U8a9ftUQhK7P3ECfpu8rkiwRZmA+xcAqi49h7o+ EYObxYMuN3Z1W0zdk/glZYaPHsq6DwOz6l8ay9w+33t5/x+ 9GepyOVz4gEygy2vu55UPCn7fbvlG2WQcWUh6txisp1SS/8H9tjqt4Uy/cCFdzNn+ F1ZLa9uzxBFkLL7o4u/9d580GUMM/Gfw08F/IJINCcMfmi24YHFSosOvGfkLR9hvFkjc/4z1a7GbXg/ 9k+JNH+1W/3Lu34vt4p5mo9aK7If7mwn0lbL7lcN0Jcls8R4Fvf8A0exoL/ 28NP1U5152F7Aic9B8VciN/pn/H9/x/8A+sG1ol9pRPanqNu/ND6T7wEx1Fs/APX/AROtex6m0jGtqv/ 66U2ezO9KY51IdBb/JJux1VTxIPD0m+VKx328OeTciw/ELwfqD/uZ/P8A+Jm5m8m1xjytUe/jz/ 3xsPpLDVmzy1Ft8m3LyY4GGn6ib+lEzTrBpOO7U/7/AMjWPCVp/kQqXkd1gyOM/ j2tknZaAxfwZvQ6MXkRw/z/EOf88AXcbhdCdvqAebgZh13tHvY8c2+ iFBk9l1NrAwqYgc3n4Pb5DtJdm38LSQqXU6B8O+g1S5V2yl7O4zqSx/j9/mNF02PCuPEokYbsG6e+F/ tzZTZYx6c5+NvHEhlx+4/4lVx/qdAibb9H7t0OleGf/kFX4J2ce+BGFbi43Jthu2Mh/p/ nvjnMF3ltB03EqFGBovO2huhCj/g99SUbR5/RicRu088aN/oM4Ea18MPm3ShrEs6A9q0NZw+/m8/wvpv /NBg47i5/5knKmSs1T6P+APCvhiaHQPCuj2+mx3E32/Mhw8KnMacnrQEtQ33pNrdmPA7thucp/ eFeS8xPfq3uT+jh4EMlJZSbbzOp/wD1zj//UN55kHYqy3EaIHTj4P1xOysyXrv5/wB+GL/nj2H5+ 2HDffJT0zBtSvV3ok/+Wn+rc3DNgy70+ojL4IE807vh0k/P7+n09e/YfHvXxx8RW7Nnic/n/n/ 0k124j56CDc0U66Tw66yjOJ5ZE54NUuLvBz7h9Sz0az8CzuK51SL0rI9i3c4gdnhaQEwZX1J+ R1mT6XurA/mDiQ24e5zME8pv+fA0KfX3s3pHB0aM/j8/d+vwS+LPgW4+Pxxo3rpPbU6sW2P0of/ i3Nntsnu/u3shpm2T+I/A+sv3V4ptm+ZM2v8SvGIN+7Wr8Y9hh1EtiBW5W52yM0pa+u75Zn5Rwed/ pF3x48zGt4/7KoEmktpcl4fY+CXi+xm8PeP/AAPrJht/tE/4dG1aH4w5P4UukZh6S068G6be+ TdAz7DLot8q8NkcxAE5NthniTPZAFJYdfayEboqeKNESSGCmq0G+SQN2ZwDeOAs/ cSEisc3Y0m5VxCztkTI3CoFTYo8dt6fXH+l8upVH7XumIzwgj3ZJ1EdE1qBvC1oz623Y4+bZz/ fhn4NRhz7/wCCj/ii/i/UszCbDi77gno/ALTfjjwl+zfuiQBMuc5V/VE0ueneYzDv4g7sZQ+ NQyrJg5Cs9702aK1D6R7g/QrsA+N/5WeoQRNw2ctzxrmshhtyE5+pHRDx9OfuUejpes9lAI/+MOvT+ KqWW613x/SP+TB0B0Dd1pF9PI8Bfv2EMz2Yf+yBGxW2sk4mFfzWjR2u7uwsIjmoyz8no/ PndOv35wboti74z6sK84xFrPqols/v/LbzITx0Y/f/AOi/42wmPuHJaI21K+f9/ tk7wdOFQ5UzDI1ziYyeKn33onSxFdt4BFNz+5+nr/e7iuG3CvedZkJbjasOCELGHCh94VKT7Y+HTH+ Ef5mVcBu6kNkQlf6N+RWTMDFaTne9jgD+e/v3JWIsbQHMzigp/wA+vvz3z+ AeZnp6qghT7Fy4zTssH6sys0c79nf/AID17+0JBqUfZ2yZql9VjzGd6PIy499t6U//TLuI8H2H4LPakq /a8/Zv+FAcZehe5TT7O/sr+UuVAKnU4azV7zYjxA5S7EyNHChdn/0MYe3Gg8miP+1XY/ 1TQMQU1USzX3b9E4Y5tXRjycf9pLt05Xb2cUfgd3yxi88f/eEKjgLATS1uv+LtNTS/Sat0mOqvf5Mp+ Ocjj1lPrmA0Kr7g7/321d66MsFbKxdMow2Kh+f9P+j7NnfFjqqSwTkbYoK7S8lYJwJHjkOy55Xk5pfYl /we+JWg/GP4W/Um6ujMUZiet2ivGrJOq/SLyjVyYfK0TvMfsfQ9qmLsAi+2W+ YhsZufTRoKyTyZSLRQrxrkZhaswX7ils023C/GrtmyRvv3c+ A6R4BuZwWbgWo042j8H0bUxRgEf1FQRaqe1+w1p1ottt6E+0ubkEtgEgY/Kjxl+667gs8cil74Y/ seaFe/FR0Ejyfym/2s/pj6Bwbw8byQOabF7PzHXnBIH46h/jAd9gRf74+I1mPDY+i4uRLWh+8Lf1CaX+

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
[2016-11-20] MEDS ORDERED: NACL 0.9% 1000 ML 1,000 ML IV ONE (01:05)
[2016-11-20 01:41] LABS: Basophils % (Auto) 1.2 % (0.0-1.8); Eosinophils % (Auto) 0.4 % (0.0-4.3); Hematocrit 40.4 % (35.5-45.6); Hemoglobin 13.8 gm/dl (11.8-15.2); Mean Corpuscular HGB Conc 34 % (32-34); Mean Corpuscular Hemoglobin 27 pg (28-32); Mean Corpuscular Volume 79 fl (84-94); Platelet Count 248 K/mm3 (140-440); Red Blood Count 5.11 M/mm3 (3.65-5.03); Red Cell Distribution Width 14.5 % (13.2-15.2); White Blood Count 9.8 K/mm3 (4.5-11.0)
[2016-11-20 01:55] LABS: Creatine Kinase MB 2.5 ng/mL (0.0-4.0)
[2016-11-20 01:58] LABS: Alanine Aminotransferase 68 units/L (7-56); Albumin 4.3 g/dL (3.9-5); Alkaline Phosphatase 81 units/L (35-129); BUN/Creatinine Ratio 13.63; Bilirubin,Total 0.5 mg/dL (0.1-1.2); Blood Urea Nitrogen 15 mg/dL (9-20); Calcium 9.1 mg/dL (8.4-10.2); Carbon Dioxide 23 mmol/L (22-30); Chloride 97.8 mmol/L (98-107); Glucose 149 mg/dL (75-100); Potassium 3.3 mmol/L (3.6-5.0); Sodium 139 mmol/L (137-145); Total Protein 8.7 g/dL (6.3-8.2)
[2016-11-20 01:59] LABS: Creatine Kinase 165 units/L (55-170)
[2016-11-20 02:00] LABS: Anion Gap 22 mmol/L
[2016-11-20] MEDS ORDERED: CATAPRES ONE (02:34)
[2016-11-20] MEDS ORDERED: CATAPRES PO ONE (02:37)
[2016-11-20] MEDS ORDERED: NORMODYNE IV ONE ×3 (03:18→04:22)
[2016-11-20 04:51] VITALS: BP 164/94
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
== END 2016-11-20 04:50 | disposition home or self-care (01) ==
LOC: ED 18:24
DX: S46.911A Strain of unspecified muscle, fascia and tendon at shoulder and upper arm level, right arm, initial encounter (principal); S13.4XXA Sprain of ligaments of cervical spine, initial encounter; S39.012A Strain of muscle, fascia and tendon of lower back, initial encounter; I10 Essential (primary) hypertension; V89.2XXA Person injured in unspecified motor-vehicle accident, traffic, initial encounter; Y93.9 Activity, unspecified; Y92.9 Unspecified place or not applicable; Y99.9 Unspecified external cause status
CPT/HCPCS: 36415; 70450; 72100; 72125; 73030; 80053; 82550; 82553; 84484; 85025; 93005; 93010; 96361; 96374; 99285; J7030